=== PATIENT | female | born 1935 | race Caucasian/White ===

== ENCOUNTER → 2019-11-10 14:36 | Outpatient (BNVA) | payer MEDICARE, OTHER, SELFPAY | PROVIDERS: Family Provider Electrodiagnostic Medicine; Visit Provider Nurse Practitioner Family | DX: Z11.59 Encounter for screening for other viral diseases (principal) | CPT/HCPCS: 87635 ==

== ENCOUNTER → 2021-11-21 09:44 | Outpatient (BNVA) | payer MEDICARE, OTHER, SELFPAY | PROVIDERS: Family Provider Electrodiagnostic Medicine; Visit Provider Otolaryngology | DX: H61.21 Impacted cerumen, right ear (principal) | CPT/HCPCS: 69210; 99202; 99203 ==

== ENCOUNTER 2023-10-14 15:51 | Observation (INO) | payer MEDICARE, OTHER, SELFPAY ==
[2023-10-06 11:00] LABS: Add Urine Microscopic? NO; Charge for UA Resulting for Rev
[2023-10-06 11:05] LABS: Basophils % 0.7 %; Eosinophils # 0.2 10^3/uL (0.0-0.8); Eosinophils % 2.9 %; Hematocrit 40.9 % (36-47); Lymphocytes # 1.6 10^3/uL (0.8-4.8); Mean Corpuscular HGB Conc 34.5 g/dL (30-55); Mean Corpuscular Volume 95.8 fl (85-98); Monocytes # 0.5 10^3/uL (0.2-0.9); Monocytes % 8.3 %; Neutrophils # 3.24 10^3/uL (1.8-7.7); Neutrophils % 58.9 %; Nucleated Red Blood Cells % 0 %; Platelet Count 416 10^3/cmm (157-399); Red Blood Count 4.27 10^6/uL (3.85-5.65); Red Cell Distribution Width 13.2 % (12.1-15.1); White Blood Count 5.51 10^3/uL (3.29-11.43)
[2023-10-06 11:08] LABS: Bilirubin Urine Neg (Negative); Blood Urine Neg (Negative); Glucose Urine UA Norm (Normal); Ketones Urine Negative (Negative); Leukocyte Esterase Urine Negative (Negative); Nitrate Urine Negative (Negative); Protein Urine Neg (Negative); Urine Appearance Clear (CLEAR); Urine Color Yellow (Yellow); Urobilinogen Urine Norm (Negative); pH Urine 8 (5-7)
[2023-10-06 11:22] LABS: Alanine Aminotransferase 11 U/L (0-33); Alkaline Phosphatase 97 U/L (35-105); Anion Gap 14.1 (5-19); Aspartate Amino Transferase 19 U/L (0-32); Blood Urea Nitrogen 10 mg/dL (8-23); Calcium 8.9 mg/dL (8.5-10.5); Carbon Dioxide 25 mmol/L (22-29); Chloride 99 mmol/L (98-107); Globulin 3.2 g/dL (1.3-4.6); Glucose 114 mg/dL (65-115); Osmolality Calculated 278 mOsm/kg (285-295); Potassium 4.1 mmol/L (3.5-5.1); Sodium 134 mmol/L (136-145); Total Bilirubin 0.4 mg/dL (0.15-1.2); Total Protein 7.2 g/dL (6.6-8.7)
--- NOTE | 2023-10-06 11:32 | ANES.PREANE2 ---
Pre-Anesthetic Assessment Height/Weight: Height 1.63 m Preop Diagnosis: Cystocele stage III Operation Date: 10/14/23 08:25 Proposed Procedures p Anterior Repair Anterior Colporrhaphy 08188, 82289, N81.10(Not Applicable) - Saw Mcmanus MD s Sling Single Incision Midurethral Sling(Not Applicable) - Saw Mcmanus MD Familial anesthetic complications: none Was Beta Amna taken within 24 hours: N/A Was Clonidine taken within 24 hours: N/A Social No alcohol and No tobacco Exam alert, oriented x 3, clear to auscultation bilaterally and regular rate & rhythm Airway Submandibular: within normal limits Cervical ROM: within normal limits Mallampati: Class II Dentition: chipped History/ROS No significant history except as noted Anesthetic Plan ASA status: 2 Anesthesia: General Medications/Allergies Home Medications Medication Instructions Recorded Confirmed Last Taken Type No Known Home Medications 11/21/21 10/06/23 Unknown History Allergies Allergy/AdvReac Type Severity Reaction Status Date / Time No Known Allergies Allergy Verified 10/06/23 07:54 PENDING SALE TO [facility] Anesthesia Surgical History Hx of unilateral oophorectomy left Hx of cholecystectomy Hx of hernia repair Social History Smoking and tobacco/nicotine status: unknown if used tobacco/nicotine Data Anesthesia 10/06/23 10:45 10/06/23 10:45 Short CBC 10/06/23 Range/Units 10:45 WBC 5.51 (3.29-11.43) 10^3/uL Hgb 14.10 (11.27-16.99) g/dL Hct 40.9 (36-47) % MCV 95.8 (85-98) fl Plt Count 416 H (157-399) 10^3/cmm Neut % (Auto) 58.9 % Neut # (Auto) 3.24 (1.8-7.7) 10^3/uL BMP 10/06/23 10:45 Sodium 134 L Potassium 4.1 Chloride 99 Carbon Dioxide 25 BUN 10 Creatinine 0.5 Glucose 114 Calcium 8.9 Liver Function 10/06/23 Range/Units 10:45 Total Bilirubin 0.4 (0.15-1.2) mg/dL AST 19 (0-32) U/L ALT 11 (0-33) U/L Alkaline Phosphatase 97 (35-105) U/L Albumin 4.0 (3.5-5.2) g/dL Urine 10/06/23 Range/Units 10:51 Urine Color Yellow (Yellow) Urine Appearance Clear (CLEAR) Urine pH 8 H (5-7) Ur Specific [place] 1.010 (1.005-1.030) Urine Protein Neg (Negative) Urine Glucose (UA) Norm (Normal) Urine Ketones Negative (Negative) Urine Nitrate Negative (Negative) Urine Bilirubin Neg (Negative) Ur Leukocyte Esterase Negative (Negative) Cardiac Studies: No Data to Display
[2023-10-14] VITALS (23 sets, daily range): BP systolic 118–215; BP diastolic 62–97; PULSE 69–96; RESP 15–18; TEMP 36.1–36.6; O2SAT 90–100; BMI 25.2
--- NOTE | 2023-10-14 13:24 | W.PM.OPSUD ---
Surgery/Procedure H&P Update DATE OF PROCEDURE: October 14, 2023 DATE H&P PERFORMED: 10/06/23 H&P UPDATE INFORMATION: I have reviewed H&P completed within last 30 days, I have examined patient prior to procedure and No changes to prior documentation PREOP DIAGNOSIS: Cystocele stage III PLANNED PROCEDURE: Operation Date: 10/14/23 14:20 Proposed Procedures p Anterior Repair Anterior Colporrhaphy 40809, 60948, N81.10(Not Applicable) - Saw Mcmanus MD s Sling Single Incision Midurethral Sling(Not Applicable) - Saw Mcmanus MD
--- NOTE | 2023-10-14 13:37 | P.ANESUD_ITS ---
Pre-Anesthetic Update Pre-Anesthetic Assessment: Date of Surgery/Procedure: 10/14/23 Preop Sabrina gnosis: Cystocele stage III Proposed Procedure: Operation Date: 10/14/23 14:20 Proposed Procedures p Anterior Repair Anterior Colporrhaphy 76766, 58725, N81.10(Not Applicable) - Saw Mcmanus MD s Sling Single Incision Midurethral Sling(Not Applicable) - Saw Mcmanus MD Any changes to Pre-Anesthetic Assessment?: No Last Intake: Intake Last Liquid Date 10/13/23 Last Liquid Time 21:00 Last Solid Date 10/13/23 Last Solid Time 17:00 Labs Last 48hrs: > 8hrs Vitals: Temperature 97.3 F L 10/14/23 13:32 Temperature Source Temporal Artery S can 10/14/23 13:32 Pulse Rate 80 10/14/23 13:32 Respiratory Rate 18 10/14/23 13:32 Blood Pressure 215/97 10/14/23 13:32 Blood Pressure Geovanna n 136 10/14/23 13:32 Pulse Oximetry 97 10/14/23 13:32 Oxygen Delivery Me thod Room Air 10/14/23 13:32 Exam: Pre-Anes Outpt Exam: alert, oriented x 3, clear to auscultation bilaterally and regular rate & rhythm Cardiac Studies: No Data to Display
[2023-10-14] MEDS: sodium chloride 0.9% 1,000 ML 30 ML IV (13:59)
[2023-10-14] MEDS: enoxaparin 30 mg/0.3 mL Syringe SUBCUT (13:59)
[2023-10-14] MEDS: ceFAZolin 2,000 MG in sodium chloride 0.9% (plus) 50 ML 100 MG IV (14:18)
[2023-10-14] MEDS: lidocaine-epi 2% PF 1:200,000 20 mL SDV INJECTION (15:17)
--- NOTE | 2023-10-14 15:50 | PM.OP ---
Operative Report Date of procedure: October 14, 2023 Pre-op diagnosis: Cystocele stage 3 Procedure done: Anterior colporrhaphy augmented with allograft Mid urethral sling Cystoscopy Implants: Coloplast Altis sling Surgeon: Saw Mcmanus MD Estimated blood loss (mL): 100 IV fluids (mL): 800 Urine output (mL): 400 Complications: None Procedure: After obtaining informed consent, the patient was taken to the operating room and placed in the supine position, given general anesthesia, and prepped and draped in sterile fashion. The abdomen, vulva and vagina were prepped and draped in a sterile manner. A time out procedure was performed. The anterior vaginal mucosa beneath the midurethra was infiltrated with 2% lidocaine with epinephrine. A vertical midline incision was made beneath the midurethra, nearly 1.5 cm length. Careful submucosal dissection was performed bilaterally up to the interior portion of the inferior pubic ramus. The insertion of adductor longus tendon on the patient?s pubic ramus was identified as reference land karie. Palpated the notch along the internal edge of ischiopubic ramus where the adductor longus tendon and the inferior pubic ramus meet. The Altis single incision sling (SIS) was selected. Then the needle of the SIS inserted aiming at the location of this notch. One of the integrated self-fixating tips place onto the needle by sliding it over the end of the needle. The needle/sling assembly was inserted toward the location of identified reference notch making sure that the flat of the handle is perpendicular to the desired path. The needle was tracked along the posterior surface of the ischiopubic ramus until the midline karie on the mesh is approximately at the midline position under the urethra. The needle was removed and the same was repeated on the contralateral side until the appropriate sling tension under the urethra was achieved ensuring that the mesh lays flat. The needle was removed and vaginal incision was closed in a running interlocking fashion with 2-0 Vicryl. The vaginal mucosa was then injected in the midline with normal saline. The vaginal mucosa was scored in the midline with the Bovie approximately 1 cm medial to the urethral meatus to 1 cm distal to the vaginal cuff. This vaginal mucosa was then undermined and then incised in the midline with the Metzenbaum scissors. The lateral aspects of the vaginal mucosa were then grasped with the Allis clamps and the vaginal mucosa was then dissected off the underlying fascia with the Metzenbaum scissors. Again, there was noted to be quite a bit of oozing at the incision, which was controlled with cautery. After adequate dissection was performed, bilaterally. An Coloplast dermis allograft was modified at time of application to fit spacea, 3 x 3 cm piece . The Coloplast allograft placed in front of cystocele ready to be implanted facing the vagina mucosa. Suture is placed at distal end of graft and placed towards vaginal cuff. Final suture is placed on proximal portion of the graft to complete the placement overlying the bladder. Then Interrupted vertical mattress sutures of 0 Vicryl were used to elevate the cystocele superiorly. The excessive vaginal mucosa was then trimmed with the Metzenbaum scissors and the vaginal mucosa was then reapproximated in the running interlocking fashion with 2-0 Vicryl. Bludigo was given IV Then the Bueno catheter was removed and cystoscope was inserted. The bladder was filled with sterile water. Complete evaluation of the bladder mucosa was performed noting no lacerations, dimpling, tears, bleeding of the mucosa or muscular layers. Both ureteral orifices were identified. Prompt excretion of blue urine from both ureteral orifices was noted. Cystoscope was withdrawn. The Bueno catheter was replaced. Excellent hemostasis was obtained. A vaginal pack is placed overnight as postoperative support for the vaginal tissues after graft placement and closure of vaginal incisions. Sponge, lap, needle, and instrument counts were correct times three. The patient was taken to the recovery room, awake and in stable condition.
--- NOTE | 2023-10-14 16:49 | PC.NURSE ---
This nurse called ALbino to let him know pt BP was 188/81 at 1630 and that the 15 min retake was 185/72 he stated he would consult with a hospitalists.
--- NOTE | 2023-10-14 16:50 | P.CONIM_ITS ---
Providers/Reason For Consult 2 Requesting Physician: Saw Mcmanus MD Attending Physician: Saw Mcmanus MD Primary Care Provider: Suman Kimble DO History of Present Illness History of Present Illness Juanita Duque is a 88 year old female is status post anterior colporrhaphy with mid urethral sling, with severe hypertension. Medications/Allergies Home Medications Medication Instructions Recorded Confirmed Last Taken Type dorzolamide 22.3 mg-timolol 6.8 10/14/23 Unknown History mg/mL eye drops timolol maleate 0.5 % eye drops drp 10/14/23 Unknown History Allergies Allergy/AdvReac Type Severity Reaction Status Date / Time No Known Allergies Allergy Verified 10/06/23 07:54 PFSH Acute 2 PFSH: Surgical History Hx of unilateral oophorectomy left Hx of cholecystectomy Hx of hernia repair Social History Smoking and tobacco/nicotine status: unknown if used tobacco/nicotine Vitals/I&O/Wt Last Vital Signs Temp 97.7 F 10/14/23 16:30 Pulse 71 10/14/23 16:30 Resp 16 10/14/23 16:30 BP 188/81 10/14/23 16:30 Pulse Ox 94 10/14/23 16:30 O2 Del Method Room Air 10/14/23 16:36 10/14/23 10/14/23 10/14/23 06:59 14:59 22:59 Intake Total 50 / 50 Output Total 900 / 900 Balance -850 / -850 Weight last 48 hrs Weight 66.678 kg Weight 66.678 kg Physical Exam 2 Urinary Catheter Management: Bueno: Cath Placed During This Visit: yes Urinary Catheter Date of Insertion: 10/14/23 Urinary Catheter Time of Insertion: 14:44 Data 10/06/23 10:45 10/06/23 10:45 Coding Level of Care Code Acute Code for Chg Fwd
--- NOTE | 2023-10-14 16:59 | P.CONIM_ITS ---
Providers/Reason For Consult 2 Consulting Physician/Specialty*: Dr. Pyle/internal medicine Reason for Consult*: High blood pressure Attending Physician: Saw Mcmanus MD Primary Care Provider: Suman Kimble DO History of Present Illness History of Present Illness Juanita Duque is a 88 year old female with no significant past medical history was admitted under [facility] for stage III cystocele repair. Postoperatively patient was found to have elevated blood pressures with systolics going over 200. Patient herself does not give any history of high blood pressure in the past. Follows up with PCP initially her blood pressures are well-controlled. Currently her blood pressure is running at 185 systolic. She denies any chest pain, nausea vomiting, headache, dizziness, difficulty breathing, weakness in any arms or legs. Hospital service was consulted for further management. Review of Systems 2 General: Reports: 10 or more systems reviewed and unremarkable except in HPI and below Const: Denies: fever(s), chills, body aches, change in appetite, change in weight, malaise, night sweats, diaphoresis, change in sleep pattern, daytime sleepiness or snoring Eyes: Denies: change in vision, blurry vision, photophobia, eye discomfort or eye discharge ENMT: Denies: throat pain, enlarged tonsils, hoarseness, mouth pain, oral sores, dry mouth, tinnitus, nasal congestion or post nasal drip Card: Denies: chest pain, palpitations, irregular heart rhythm, edema, swelling of feet/ankles, lightheadedness, syncope, pre-syncope, dyspnea on exertion, orthopnea, leg pain with exertion or acrocyanosis Resp: Denies: dyspnea, productive cough, non-productive cough, wheezing, stridor, pain on inspiration, change in phlegm color, hemoptysis or chest congestion GI: Denies: abdominal pain, nausea, vomiting, hematemesis, coffee ground emesis, dysphagia, heartburn, diarrhea, constipation, bloating, GI cramping, change in bowel habits, pain on defecation, hematochezia or melena : Denies: flank pain, dysuria, urinary frequency, urinary urgency, urinary hesitancy, nocturia or hematuria Musc: Denies: neck pain, back pain, extremity pain, joint pain, joint swelling, joint redness, joint stiffness or limited range of motion Neuro: Denies: headache(s), numbness in extremities, weakness in extremities, sensory changes, lack of coordination, difficulty walking, frequent falls, dizziness, vertigo, confusion, Slurred speech present, difficulty communicating thoughts or seizure-like activity Psych: Denies: anxiety, depression, mood swings, panic attacks, hopelessness or irritability Endo: Denies: polyuria, polydipsia, tired all the time, cold intolerance, excessive sweating, flushing or heat intolerance Keo/Lymph: Denies: easy bruising or easy bleeding All/Imm: Denies: tongue swelling, facial swelling or acute wheezing Medications/Allergies Home Medications Medication Instructions Recorded Confirmed Last Taken Type dorzolamide 22.3 mg-timolol 6.8 10/14/23 Unknown History mg/mL eye drops timolol maleate 0.5 % eye drops drp 10/14/23 Unknown History Allergies Allergy/AdvReac Type Severity Reaction Status Date / Time No Known Allergies Allergy Verified 10/06/23 07:54 PFSH Acute 2 PFSH: Surgical History Hx of unilateral oophorectomy left Hx of cholecystectomy Hx of hernia repair Social History Smoking and tobacco/nicotine status: unknown if used tobacco/nicotine Vitals/I&O/Wt Last Vital Signs Temp 97.7 F 10/14/23 16:30 Pulse 71 10/14/23 16:30 Resp 16 10/14/23 16:30 BP 185/72 10/14/23 16:45 Pulse Ox 94 10/14/23 16:30 O2 Del Method Room Air 10/14/23 16:36 10/14/23 10/14/23 10/14/23 06:59 14:59 22:59 Intake Total 50 / 50 Output Total 900 / 900 Balance -850 / -850 Weight last 48 hrs Weight 66.678 kg Weight 66.678 kg Physical Exam 2 Narrative: General: No acute distress, AO x3 HEENT: PERRLA, pupils bilaterally equal and reactive Chest: Normal vesicular breath sounds, no added sounds, equal good air entry bilaterally CVS: S1-S2 regular, no murmurs, no tachycardia, no gallops, no rubs Abdomen: Soft, nontender, no organomegaly, bowel sounds present Neuro: No focal deficits, no facial deformity, AO x3, power 5/5 in all limbs Urinary Catheter Management: Bueno: Cath Placed During This Visit: yes Urinary Catheter Date of Insertion: 10/14/23 Urinary Catheter Time of Insertion: 14:44 Data 10/06/23 10:45 10/06/23 10:45 A&P Assessment and plan (1) Elevated systolic blood pressure reading without diagnosis of hypertension: No past history of hypertension. Goal blood pressure less than 140/90 mmHg. For now start patient on amlodipine 10 mg oral daily. IV hydralazine 10 mg every 4 hours as needed for systolic blood pressure of more than 160 mmHg. Uptitrate as for goal blood pressure. (2) Encounter for postoperative care: Monitor hemoglobin. Check CBC, CMP. Last blood work present from 10/05. Check A1c, lipid panel, iron panel, B12, folate level, TSH. Plan Full code Clear liquid diet Thank you for involving us in care of . Will continue to follow. Consult Attestations 2 Medical Necessity Statement: As per primary team. Diagnoses Elevated systolic blood pressure reading without diagnosis of hypertension R03.0 Encounter for postoperative care Z48.89
[2023-10-14] MEDS: docusate sodium 100 mg Capsule PO (17:17)
[2023-10-14] MEDS: amlodipine 10 mg Tablet PO (17:18)
[2023-10-14] MEDS: dextrose 5%-lactated ringers 1,000 ML 125 ML IV (17:30)
[2023-10-14] MEDS: ketorolac 30 mg/mL INJ IVP (17:31)
[2023-10-14 18:02] LABS: Basophils % 0.5 %; Eosinophils # 0.1 10^3/uL (0.0-0.8); Eosinophils % 0.9 %; Hematocrit 42.4 % (36-47); Lymphocytes # 0.9 10^3/uL (0.8-4.8); Lymphocytes % 10.6 %; Mean Corpuscular HGB Conc 33.7 g/dL (30-55); Mean Corpuscular Hemoglobin 32.8 pg (27-33); Mean Corpuscular Volume 97.2 fl (85-98); Mean Platelet Volume 10.2 fL (7.4-10.4); Monocytes # 0.1 10^3/uL (0.2-0.9); Monocytes % 1.4 %; Neutrophils # 7.32 10^3/uL (1.8-7.7); Neutrophils % 86.5 %; Nucleated Red Blood Cells % 0 %; Platelet Count 406 10^3/cmm (157-399); Red Blood Count 4.36 10^6/uL (3.85-5.65); Red Cell Distribution Width 13.2 % (12.1-15.1); White Blood Count 8.47 10^3/uL (3.29-11.43)
--- NOTE | 2023-10-14 18:24 | PC.NURSE ---
This nurse recieved orders from Dr. Pyle to wait 2 hrs after giving the 10mg amlodipine and if after that 2hrs pt was still having BP with a systolic above 160 then give hydralazine.
[2023-10-14 18:36] LABS: Alanine Aminotransferase 16 U/L (0-33); Albumin Level 4.2 g/dL (3.5-5.2); Alkaline Phosphatase 93 U/L (35-105); Aspartate Amino Transferase 26 U/L (0-32); Blood Urea Nitrogen 7 mg/dL (8-23); Calcium 8.5 mg/dL (8.5-10.5); Carbon Dioxide 25 mmol/L (22-29); Chloride 100 mmol/L (98-107); Creatinine Clr Calc Pharmacy 45.6512; Globulin 3.4 g/dL (1.3-4.6); Glucose 111 mg/dL (65-115); Iron 79 ug/dL (37-145); Osmolality Calculated 279 mOsm/kg (285-295); Percent Saturation 31.9 % (20-50); Sodium 135 mmol/L (136-145); Thyroid Stimulating Hormone 0.82 uIU/mL (0.27-4.20); Total Bilirubin 0.2 mg/dL (0.15-1.2); Total Iron Binding Capacity 247 mcg/dl; Total Protein 7.6 g/dL (6.6-8.7); Unsaturated Iron Binding 168 ug/dL (112-347)
[2023-10-14 18:39] LABS: Anion Gap 13.7 (5-19); Potassium 3.7 mmol/L (3.5-5.1); Vitamin B12 > 2000 pg/mL (232-1245)
[2023-10-14] MEDS: hyDRALAzine 20 mg/mL INJ 1 mL 10 MG IVP (19:45)
[2023-10-14 21:10] LABS: Estmated Average Glucose 114; Hemoglobin A1C 5.6 % (4.0-6.0)
[2023-10-15] MEDS: ketorolac 30 mg/mL INJ IVP (00:02)
[2023-10-15 00:04] VITALS: BP 118/63; PULSE 80; O2SAT 92
--- NOTE | 2023-10-15 00:08 | PC.NURSE ---
This RN ambulating with patient in [place] at this time.
[2023-10-15 04:35] VITALS: BP 114/63; PULSE 81; RESP 16; TEMP 36.7; O2SAT 97
[2023-10-15 05:36] LABS: Basophils % 0.1 %; Hematocrit 39.2 % (36-47); Lymphocytes % 10.4 %; Mean Corpuscular HGB Conc 33.4 g/dL (30-55); Mean Corpuscular Volume 95.6 fl (85-98); Mean Platelet Volume 9.8 fL (7.4-10.4); Monocytes # 0.5 10^3/uL (0.2-0.9); Monocytes % 4.6 %; Neutrophils # 8.18 10^3/uL (1.8-7.7); Neutrophils % 84.4 %; Nucleated Red Blood Cells % 0 %; Platelet Count 389 10^3/cmm (157-399); Red Cell Distribution Width 13.2 % (12.1-15.1)
[2023-10-15 05:57] LABS: Alanine Aminotransferase 25 U/L (0-33); Albumin Level 3.7 g/dL (3.5-5.2); Alkaline Phosphatase 88 U/L (35-105); Anion Gap 13.6 (5-19); Aspartate Amino Transferase 32 U/L (0-32); Blood Urea Nitrogen 8 mg/dL (8-23); Calcium 8.6 mg/dL (8.5-10.5); Carbon Dioxide 22 mmol/L (22-29); Chloride 99 mmol/L (98-107); Creatinine Clr Calc Pharmacy 45.6512; Glucose 118 mg/dL (65-115); Osmolality Calculated 271 mOsm/kg (285-295); Potassium 3.6 mmol/L (3.5-5.1); Sodium 131 mmol/L (136-145); Total Bilirubin 0.3 mg/dL (0.15-1.2); Total Protein 6.7 g/dL (6.6-8.7)
[2023-10-15 05:58] LABS: Chol HDL Ratio 2.35 mg/dL (0.0-4.40); Cholesterol 188 mg/dL (0-200); HDL Cholesterol 80 mg/dL (60-100); LDL Cholesterol Calculated 87 mg/dL (50-129); Magnesium 1.9 mg/dL (1.7-2.3); Triglycerides 106 mg/dL (0-150); VLDL Cholestrol Calculation 21 mg/dL (0-30)
[2023-10-15 07:16] LABS: Folate Level > 20.0 ng/mL (4.8-37.3)
[2023-10-15 08:00] VITALS: BP 160/70; PULSE 72; RESP 18; TEMP 36.8; O2SAT 97
[2023-10-15] MEDS: ibuprofen 800 mg tablet PO (08:40)
[2023-10-15] MEDS: docusate sodium 100 mg Capsule PO (08:40)
--- NOTE | 2023-10-15 09:38 | PM.OBGYDC ---
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 Duque 88-year-old female with a history of cystocele stage III. Admitted for an anterior colporrhaphy and mid urethral sling. The procedures were performed without complication. Postop observation significant for elevated blood pressure. Hospitalist consulted for blood pressure management. Overnight observation was uneventful. Postvoid residual within normal limits. Pain well under control, tolerating diet well. Ambulating without difficulty. She was counseled regarding weight lifting limitations nothing greater than 10 pounds and pelvic rest for 6 weeks (no sex, no tampons, no vaginal douches). Return to the emergency room if any fever, increased bleeding or pain. Physical Exam Narrative: GA: Alert and oriented ?3. HEENT: WNL. Heart: Regular rate and rhythm. Lungs: Clear to auscultation bilaterally. 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 Extremities: No edema, no cyanosis, no calves pain. Urinary Catheter Management: Bueno: Cath Placed During This Visit: yes, but has since been removed by the nurse Reason for Continuing Indwelling Catheter: Decision to DC Catheter Urinary Catheter Date of Insertion: 10/14/23 Urinary Catheter Time of Insertion: 14:44 Date Urinary Catheter Removed: 10/15/23 Time Urinary Catheter Discontinued: 05:35 History History History 3 Term 3 0 Miscarriages/Ectopic 0 Living Children 2 Discharge Data Studies Completed and Pending Pending at discharge Category Date Time Status MAG [Magnesium] AM LABS Lab 10/16/23 04:00 Ordered MAG [Magnesium] AM LABS Lab 10/17/23 04:00 Ordered Retype for Patiets ABO/Rh Routine Lab 10/14/23 15:32 Ordered Laboratory Results WBC 9.70 10^3/uL (3.29-11.43) 10/15/23 05:25 RBC 4.10 10^6/uL (3.85-5.65) 10/15/23 05:25 Hgb 13.10 g/dL (11.27-16.99) 10/15/23 05:25 Hct 39.2 % (36-47) 10/15/23 05:25 MCV 95.6 fl (85-98) 10/15/23 05:25 MCH 32.0 pg (27-33) 10/15/23 05:25 MCHC 33.4 g/dL (30-55) 10/15/23 05:25 RDW 13.2 % (12.1-15.1) 10/15/23 05:25 Plt Count 389 10^3/cmm (157-399) 10/15/23 05:25 MPV 9.8 fL (7.4-10.4) 10/15/23 05:25 Neut % (Auto) 84.4 % 10/15/23 05:25 Lymph % (Auto) 10.4 % 10/15/23 05:25 Riley % (Auto) 4.6 % 10/15/23 05:25 Eos % (Auto) 0.0 % 10/15/23 05:25 Baso % (Auto) 0.1 % 10/15/23 05:25 Neut # (Auto) 8.18 10^3/uL (1.8-7.7) H 10/15/23 05:25 Lymph # (Auto) 1.0 10^3/uL (0.8-4.8) 10/15/23 05:25 Riley # (Auto) 0.5 10^3/uL (0.2-0.9) 10/15/23 05:25 Eos # (Auto) 0.0 10^3/uL (0.0-0.8) 10/15/23 05:25 Baso # (Auto) 0.0 10^3/uL (0.0-0.1) 10/15/23 05:25 Nucleated RBC % (auto) 0 % 10/15/23 05:25 Nucleated RBCs # 0.0 /100WBC 10/15/23 05:25 Sodium 131 mmol/L (136-145) L 10/15/23 05:25 Potassium 3.6 mmol/L (3.5-5.1) 10/15/23 05:25 Chloride 99 mmol/L (98-107) 10/15/23 05:25 Carbon Dioxide 22 mmol/L (22-29) 10/15/23 05:25 Anion Gap 13.6 (5-19) 10/15/23 05:25 BUN 8 mg/dL (8-23) 10/15/23 05:25 Creatinine 0.5 mg/dL (0.5-0.9) 10/15/23 05:25 GFR Calculation Not Reportable 10/15/23 05:25 Glucose 118 mg/dL (65-115) H 10/15/23 05:25 Estimat Average Glucose 114 10/14/23 17:38 Hemoglobin A1c 5.6 % (4.0-6.0) 10/14/23 17:38 Calculated Osmolality 271 mOsm/kg (285-295) L 10/15/23 05:25 Calcium 8.6 mg/dL (8.5-10.5) 10/15/23 05:25 Magnesium 1.9 mg/dL (1.7-2.3) 10/15/23 05:25 Iron 79 ug/dL (37-145) 10/14/23 17:38 TIBC 247 mcg/dl 10/14/23 17:38 % Saturation 31.9 % (20-50) 10/14/23 17:38 Unsat Iron Binding 168 ug/dL (112-347) 10/14/23 17:38 Total Bilirubin 0.3 mg/dL (0.15-1.2) 10/15/23 05:25 AST 32 U/L (0-32) 10/15/23 05:25 ALT 25 U/L (0-33) 10/15/23 05:25 Alkaline Phosphatase 88 U/L (35-105) 10/15/23 05:25 Total Protein 6.7 g/dL (6.6-8.7) 10/15/23 05:25 Albumin 3.7 g/dL (3.5-5.2) 10/15/23 05:25 Globulin 3.0 g/dL (1.3-4.6) 10/15/23 05:25 Triglycerides 106 mg/dL (0-150) 10/15/23 05:25 Cholesterol 188 mg/dL (0-200) 10/15/23 05:25 LDL Cholesterol, Calc 87 mg/dL (50-129) 10/15/23 05:25 Total VLDL Cholesterol 21 mg/dL (0-30) 10/15/23 05:25 HDL Cholesterol 80 mg/dL (60-100) 10/15/23 05:25 Cholesterol/HDL Ratio 2.35 mg/dL (0.0-4.40) 10/15/23 05:25 Vitamin B12 > 2000 pg/mL (232-1245) H 10/14/23 17:38 Folate > 20.0 ng/mL (4.8-37.3) 10/15/23 05:25 TSH 0.82 uIU/mL (0.27-4.20) 10/14/23 17:38 Urine Color Yellow (Yellow) 10/06/23 10:51 Urine Appearance Clear (CLEAR) 10/06/23 10:51 Urine pH 8 (5-7) H 10/06/23 10:51 Ur Specific [place] 1.010 (1.005-1.030) 10/06/23 10:51 Urine Protein Neg (Negative) 10/06/23 10:51 Urine Glucose (UA) Norm (Normal) 10/06/23 10:51 Urine Ketones Negative (Negative) 10/06/23 10:51 Urine Blood Neg (Negative) 10/06/23 10:51 Urine Nitrate Negative (Negative) 10/06/23 10:51 Urine Bilirubin Neg (Negative) 10/06/23 10:51 Urine Urobilinogen Norm mg/dL (Negative) 10/06/23 10:51 Ur Leukocyte Esterase Negative (Negative) 10/06/23 10:51 Blood Type A Positive 10/14/23 13:45 Rho(D) Type Rh positive 10/14/23 13:45 Antibody Screen Negative 10/14/23 13:45 Vitals Last Vital Signs Temp 98.0 F 10/15/23 04:35 Pulse 81 10/15/23 04:35 Resp 16 10/15/23 04:35 BP 114/63 10/15/23 04:35 Pulse Ox 97 10/15/23 04:35 O2 Del Method Room Air 10/15/23 04:35 Results Labs OB ([facility]): Blood Type A Positive 10/14/23 Antibody Screen Negative 10/14/23 Hct 39.2 % (36-47) 10/15/23 Hgb 13.10 g/dL (11.27-16.99) 10/15/23 Rho(D) Type Rh positive 10/14/23 Plt Count 389 10^3/cmm (157-399) 10/15/23 TSH 0.82 uIU/mL (0.27-4.20) 10/14/23 Hemoglobin A1c 5.6 % (4.0-6.0) 10/14/23 Discharge Plan Discharge Patient Disposition: Home Condition: Stable Prescriptions: New hydrocodone-acetaminophen 5-325 mg tablet 1 tab PO Q4H PRN (Reason: pain) Qty: 10 0RF nitrofurantoin macrocrystal 100 mg capsule 100 mg PO BID 3 Days Qty: 6 0RF Rx Instructions: must administer with a meal/food acetaminophen 325 mg capsule 325 mg PO Q4H PRN (Reason: fever or pain) Qty: 60 0RF ibuprofen 800 mg tablet 800 mg PO TID PRN (Reason: pain) Qty: 60 0RF Continued dorzolamide-timolol 22.3-6.8 mg/mL drops timolol maleate 0.5 % drops Discharge Orders: Discharge Order (Routine); Ordered 10/15/23 Ordered By: Saw Mcmanus Referrals: Saw Mcmanus MD [Physician] - 2 weeks Discharge Diet: Usual diet Discharge Activity: Limit activity as instructed Patient Instructions: Acute Wound Care (DC), Anterior Vaginal Repair (DC), OB Discharge Report, OB Food/Drug Interaction Guide, Opioid Safety, Post Anesthesia Care, Bladder Sling for Women (GEN) Activity Restrictions/Additional Instructions: 1. Please call [facility] on next working day to make your post-operative appointment in 2 weeks. 2. Please stay home until you come back to the clinic on first post-hospatilization check up. 3. Please follow instructions on your medications CAREFULLY. 4. If you have abdominal incision, do not cover it unless dressing is necessary because of drainage. OK to shower, but avoid bath. Leave steri-strips until they fall off. If they are still on one week after surgery, you may remove them. 5. If you had vaginal surgery or vaginal repair, Dr. Mcmanus may instruct you to take SITZ bath. 6. Yellow, blood tinged odorous vaginal discharge is usually normal after hysterectomy or vaginal surgeries. 7. No SEXUAL INTERCOURSE, tampons, or douches until you are completely released from the post-operative care. 8. Avoid constipation by eating right and maybe using some Metamucil or Milk of Magnesia. 9. All prescription refills are given during the working hours. Please do no wait till it runs out. Call the clinic at [phone] before your medication runs out. The clinic will get in touch with your doctor to prescribe medications if necessary. 10. Please remain within 40 mile radius from our hospital because emergencies do happen now and then during the post-operative period. 11. If you have stairs at home, take one step at a time slowly and minimize the number of trips. It helps to stay in one floor for the next few days. No lifting except what you can lift by one hand until you are released from the post-operative care. 12. Driving is discouraged until you are well healed. It may be 3-4 weeks before you feel strong enough to drive. You should be able to turn and look through the rear window without pain and you should be able to push the brake pedal very hard without pain before you drive. No fast rules, but SAFETY should be your primary concern. DO NOT drive if you are on sedating medications such as narcotics. 13. Call the clinic (during working hours) to make urgent appointment or go to the Emergency room, if any of the following occurs: i. Vaginal bleeding becomes heavy, more than a period. ii. Incision becomes red and sore, or drains pus. iii. Your TEMPERATURE is over 100.4F or you have chill. iv. IV site becomes red and swollen (a little ``knot?? is usually OK) v. Persistent nausea and vomiting vi. Persistent constipation or diarrhea vii. Rash or allergic reaction to medications. 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
--- NOTE | 2023-10-15 09:55 | P.PN_ITS ---
Subjective 2 Subjective: Overnight patient received both amlodipine and 1 extra dose of IV hydralazine. Blood pressures were better after that. Today morning patient had declined the oral amlodipine. Plan is to be discharged as per primary team. Vitals/I&O/Wt Last Vital Signs Temp 98.0 F 10/15/23 04:35 Pulse 81 10/15/23 04:35 Resp 16 10/15/23 04:35 BP 114/63 10/15/23 04:35 Pulse Ox 97 10/15/23 04:35 O2 Del Method Room Air 10/15/23 04:35 10/14/23 10/15/23 10/15/23 22:59 06:59 14:59 Intake Total 50 / 50 600 / 600 Output Total 3500 / 3500 700 / 4200 Balance -3450 / -3450 -700 / -4150 600 / 600 Weight last 48 hrs Weight 66.678 kg Weight 66.678 kg Physical Exam 2 Narrative: General: No acute distress, AO x3 HEENT: PERRLA, pupils bilaterally equal and reactive Chest: Normal vesicular breath sounds, no added sounds, equal good air entry bilaterally CVS: S1-S2 regular, no murmurs, no tachycardia, no gallops, no rubs Abdomen: Soft, nontender, no organomegaly, bowel sounds present Neuro: No focal deficits, no facial deformity, AO x3, power 5/5 in all limbs Urinary Catheter Management: Bueno: Cath Placed During This Visit: yes, but has since been removed by the nurse Reason for Continuing Indwelling Catheter: Decision to DC Catheter Urinary Catheter Date of Insertion: 10/14/23 Urinary Catheter Time of Insertion: 14:44 Date Urinary Catheter Removed: 10/15/23 Time Urinary Catheter Discontinued: 05:35 Data 10/15/23 05:25 10/15/23 05:25 A&P Assessment and plan (1) Elevated systolic blood pressure reading without diagnosis of hypertension: No past history of hypertension. Goal blood pressure less than 140/90 mmHg. For now start patient on amlodipine 10 mg oral daily. IV hydralazine 10 mg every 4 hours as needed for systolic blood pressure of more than 160 mmHg. Uptitrate as for goal blood pressure. (2) Encounter for postoperative care: Monitor hemoglobin. Check CBC, CMP. Last blood work present from 10/05. Check A1c, lipid panel, iron panel, B12, folate level, TSH. Plan Full code Blood work appreciated. Patient's iron panel, vitamin B12, folate and lipid panel appreciated. TSH normal. Patient would benefit with amlodipine 5 mg oral daily. Her goal blood pressure should be less than 140/90 mmHg. She has been advised in detail to check her blood pressures daily and maintain a blood pressure diary and follow-up with a primary care provider for further adjustment of medications. Patient was counseled in detail to maintain a blood pressure below 140/90 to prevent strokes or CAD in future. Medical reconciliation has been done. Thank you for involving us in care of . Will continue to follow. Attestations 2 Medical Necessity Statement*: After primary team. Diagnoses Elevated systolic blood pressure reading without diagnosis of hypertension R03.0 Encounter for postoperative care Z48.89
[2023-10-15 11:10] VITALS: BP 168/74; PULSE 78; RESP 18; TEMP 36.7; O2SAT 98
[2023-10-15 11:15] VITALS: BP 168/74; PULSE 78; RESP 18; TEMP 36.7; O2SAT 98
== END 2023-10-15 11:15 | disposition home or self-care (01) ==
LOC: OBGYN 15:52
PROVIDERS: Student in an Organized Health Care Education/Training Program; Admitting Provider Obstetrics & Gynecology; PCP Electrodiagnostic Medicine; Visit Provider Obstetrics & Gynecology
PROC: 0JQC0ZZ Repair Pelvic Region Subcutaneous Tissue and Fascia, Open Approach (ICD-10-PCS; CPT 57240; principal; 2023-10-14 14:10)
PROC: (CPT 57288; 2023-10-14 14:10)
DX: N81.10 Cystocele, unspecified (principal); R03.0 Elevated blood-pressure reading, without diagnosis of hypertension
CPT/HCPCS: 57240; 57288; 36415; 51798; 80053; 80061; 81003; 82607; 82746; 83036; 83540; 83550; 83735; 84443; 85025; 86850; 86900; C1713; C1762; G0378; J0360; J0690; J1100; J1650; J1885; J2405; J2704; J3010; J3490; J7030; J7121

== ENCOUNTER 2024-07-01 07:43 | Outpatient (CLI) | payer MEDICARE, OTHER, SELFPAY ==
--- NOTE | 2024-07-01 07:49 | MR_ITS ---
WS: [id number] MRI BRAIN WITH AND WITHOUT CONTRAST HISTORY: OPTIC NERVE INFARCTION COMPARISON: None available. TECHNIQUE: Multiplanar imaging performed through the brain with MultiHance 13 ml's IV. Normal diffusion imaging. No acute infarct. Extensive periventricular white matter disease. Patchy and confluent T2 and FLAIR signal hyperintensities throughout the white matter. Symmetric bilaterally and involving the frontal, temporal and parietal lobes. Prior bilateral cerebellar lacunar infarcts. M oderate symmetric atrophy. No prior hemorrhage. Mildly prominent ventricles and extra-axial spaces on the basis of atrophy. Clivus and pituitary gland are normal. Visualized posterior fossa and brainstem are also normal. Postcontrast images are negative for masses or vascular malformations. Dural venous sinuses are normal. Paranasal sinuses: Heterogeneous complex signal in the LEFT maxillary sinus. Remaining sinuses are clear. Mastoid air cells: Normal. Calvarium and scalp: Normal. MR/MR head wo/w con [id number] IMPRESSION: 1. No acute infarct or hemorrhage. 2. 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 3. 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 4. Moderate symmetric cerebral and cerebellar atrophy. 5. No enhancing masses. 6. LEFT maxillary sinusitis.
--- NOTE | 2024-07-01 07:49 | MR_ITS ---
WS: [id number] MRA ANGIOGRAPHY [place] HISTORY: OPTIC NERVE INFARCTION COMPARISON: None available. TECHNIQUE: 3-D MR angiography is performed of the [place]. All images are reviewed including source images. Distal vertebral and basilar arteries are intact with no significant stenosis or plaque. Posterior cerebral arteries are normal course and caliber. Posterior communicating arteries are both patent. Intracranial portion of the internal carotid arteries are patent. Mild atherosclerotic disease to the carotid cavernous sinuses but no occlusion. Middle cerebral arteries are both patent. Mild irregularity of the arteries. No occlusions. Anterior cerebral arteries normal caliber. Mildly hypoplastic RIGHT A1 segment. MR/MR angio head wo con [id number] IMPRESSION: 1. No cerebral artery aneurysm. 2. Mild atherosclerotic plaque within the intracranial carotid arteries and th e middle cerebral arteries but no occlusion or high-grade stenosis. 3. Mildly hypoplastic RIGHT A1 segment.
[2024-07-01] MEDS: gadobenate dimeglumine 20 mL vial 14 ML IV (09:12)
== END 2024-07-01 07:44 | disposition home or self-care (01) ==
PROVIDERS: PCP Electrodiagnostic Medicine; Visit Provider Electrodiagnostic Medicine
DX: H47.019 Ischemic optic neuropathy, unspecified eye (principal); R90.82 White matter disease, unspecified; G31.89 Other specified degenerative diseases of nervous system; J01.00 Acute maxillary sinusitis, unspecified; R93.0 Abnormal findings on diagnostic imaging of skull and head, not elsewhere classified
CPT/HCPCS: 70544; 70553